=== PATIENT | female | born 1985 | race Caucasian/White ===

== ENCOUNTER 2018-03-16 10:27 | Emergency (ER) | payer MEDICARE, OTHER ==
[~2018-03-16] VITALS: Ht 160 cm; Wt 61.0 kg
[2018-03-16 11:55] VITALS: BP 107/70
[2018-03-16] MEDS ORDERED: triamcinolone acetonide 40mg/ml inj IM ONE (13:20)
[2018-03-16] MEDS ORDERED: methylPREDNISolone sod succ 125mg/2ml vial IM ONE (13:20)
[2018-03-16] MEDS ORDERED: PRED20TA PO (13:21)
== END 2018-03-16 14:17 | disposition home or self-care (01) ==
LOC: ER 10:29
DX: G35 Multiple sclerosis (principal); Z98.51 Tubal ligation status; Z79.899 Other long term (current) drug therapy
CPT/HCPCS: 96372; 99284; J2930; J3301